=== PATIENT | male | born 1955 | race Caucasian/White ===

== ENCOUNTER 2020-02-17 17:01 | Emergency (ER) | payer OTHER ==
[~2020-02-17] VITALS: Ht 175.3 cm; Wt 131.9 kg
[2020-02-17] MEDS ORDERED: ACETAMINOPHEN 500 MG TABLET ONE (17:25)
[2020-02-17] MEDS ORDERED: ACETAMINOPHEN 500 MG TABLET PO ONE (17:30)
[2020-02-17] MEDS ORDERED: SODIUM CHLORIDE FLUSH 10ML SYR IVF ONE (17:30)
[2020-02-17] MEDS ORDERED: SODIUM CHLORIDE 0.9% 1,000ML IVBOLUS ONE (17:30)
[2020-02-17 17:50] LABS: BASOPHILS % (AUTO) 1 % (0-1); EOSINOPHILS % (AUTO) 0 % (1-7); LYMPHOCYTES % (AUTO) 14 % (22-44); MEAN CORPUSCULAR HEMOGLOBIN 31.4 pg (27.5-34.5); MEAN CORPUSCULAR HGB CONC 34.5 g/dL (33.2-36.2); MEAN PLATELET VOLUME 8.9 fL (7.4-10.4); MONOCYTES % (AUTO) 8 % (2-9); NEUTROPHILS % (AUTO) 78 % (42-75); PLATELET COUNT 136 x10^3/uL (130-400); RED BLOOD COUNT 5.07 x10^6/uL (4.38-5.82); RED CELL DISTRIBUTION WIDTH 14.1 % (9.4-14.8)
[2020-02-17 17:58] LABS: ANION GAP 8 mmol/L (5-15); CALCIUM 8.7 mg/dL (8.5-10.1); CHLORIDE 99 mmol/L (98-107)
[2020-02-17 18:01] LABS: ALANINE AMINOTRANSFERASE 58 U/L (12-78); ALKALINE PHOSPHATASE 86 U/L (45-117); BILIRUBIN,TOTAL 0.8 mg/dL (0.2-1.0); TOTAL PROTEIN 8.1 g/dL (6.4-8.2)
[2020-02-17 18:05] LABS: MD NO
--- NOTE | 2020-02-17 18:54 | NUR ---
REPORT FROM HUMBERTO FERRARI. FIRST CONTACT, PT SAYS HE FEELS GOOD. ROAD TEST DOWN HALLWAY TO BATHROOM, WAS ABLE TO SPEAK FULL SENTENCES. RR 22 UPON RETURN O2 SAT 92% HR 113. PT SAYS HE FEELS A LOT BETTER.
[2020-02-17 19:38] VITALS: BP 145/88
== END 2020-02-17 19:58 | disposition home or self-care (01) ==
LOC: ED 19:06
DX: U07.1 COVID-19 (principal); R50.9 Fever, unspecified; R05 Cough; R10.9 Unspecified abdominal pain
CPT/HCPCS: 71045; 80053; 85025; 87635; 93005; 96360; 99285; J7030

== ENCOUNTER 2020-02-21 17:20 | Inpatient (IN) | payer OTHER ==
[~2020-02-21] VITALS: Ht 175.3 cm; Wt 125.1 kg
[2020-02-21 19:01] LABS: BASOPHILS % (AUTO) 0 % (0-1); EOSINOPHILS % (AUTO) 0 % (1-7); LYMPHOCYTES % (AUTO) 15 % (22-44); MEAN CORPUSCULAR HEMOGLOBIN 31.6 pg (27.5-34.5); MEAN PLATELET VOLUME 9.2 fL (7.4-10.4); MONOCYTES % (AUTO) 5 % (2-9); NEUTROPHILS % (AUTO) 80 % (42-75); PLATELET COUNT 148 x10^3/uL (130-400); RED BLOOD COUNT 4.79 x10^6/uL (4.38-5.82); RED CELL DISTRIBUTION WIDTH 14.3 % (9.4-14.8)
[2020-02-21 19:05] LABS: MD NO
[2020-02-21 19:15] LABS: ALANINE AMINOTRANSFERASE 40 U/L (12-78); ALBUMIN 3.3 g/dL (3.4-5.0); ANION GAP 8 mmol/L (5-15); CALCIUM 8.1 mg/dL (8.5-10.1); CHLORIDE 97 mmol/L (98-107); CREATININE 1.56 mg/dL (0.7-1.3)
[2020-02-21 19:17] LABS: ALKALINE PHOSPHATASE 61 U/L (45-117); BILIRUBIN,TOTAL 0.7 mg/dL (0.2-1.0); TOTAL PROTEIN 7.4 g/dL (6.4-8.2)
[2020-02-21] MEDS ORDERED: DEXAMETHASONE 4 MG TABLET PO ONE (22:00)
[2020-02-21] MEDS ORDERED: DEXAMETHASONE 4 MG TABLET ONE (22:16)
--- NOTE | 2020-02-21 22:25 | NUR ---
PT RESTING IN BED, WITH NC ON WITH O2 AT 3L. PT A/O X4 AND ON MONITOR. PT VSS. PT DENIED ANY WANTS OR NEEDS AT THIS TIME
[2020-02-22 00:56] VITALS: BP 135/77
[2020-02-22] MEDS ORDERED: ISOS60TA36 PO (01:39)
[2020-02-22] MEDS ORDERED: ATOR40TA78 PO (01:39)
[2020-02-22] MEDS ORDERED: AMLO1CAP3 PO (01:39)
[2020-02-22] MEDS ORDERED: PHARMACY MAY ADJ FOR RENAL FX MC PRN (03:00)
[2020-02-22] MEDS ORDERED: hydrALAzine 20 MG/ML, 1ML IVPush PRN (03:00)
[2020-02-22] MEDS ORDERED: DOCUSATE 100 MG CAPSULE PO PRN (03:00)
[2020-02-22] MEDS ORDERED: morphine SULFATE 10 MG/ML, 1ML IVPush PRN (03:00)
[2020-02-22] MEDS ORDERED: PROMETHAZINE 25 MG/ML, 1ML IM PRN (03:00)
[2020-02-22] MEDS ORDERED: ONDANSETRON 2MG/ML, 2ML IVPush PRN (03:00)
[2020-02-22] MEDS ORDERED: OXYcodone IR 5MG TABLET PO PRN (03:00)
[2020-02-22] MEDS ORDERED: BISACODYL 10 MG SUPP PR PRN (03:00)
[2020-02-22] MEDS ORDERED: ONDANSETRON ODT 4 MG PO PRN (03:00)
[2020-02-22] MEDS ORDERED: ENOXAPARIN 40 MG/0.4 ML SQ SCH (03:00)
[2020-02-22] MEDS ORDERED: POLYETHYLENE GLYCOL 17 GM PACKET PO PRN (03:00)
[2020-02-22] MEDS: SODIUM CHLORIDE 0.9% 1,000 ML IV SCH ×2 (05:12→23:12)
[2020-02-22] MEDS: DOXYCYCLINE 100 MG in DEXTROSE 5% 250 ML IV SCH ×2 (05:12→16:40)
[2020-02-22] MEDS: ASCORBIC ACID 500 MG TABLET PO SCH ×4 (05:12→20:27)
[2020-02-22] MEDS: ENOXAPARIN 40 MG/0.4 ML SQ SCH ×2 (05:13→16:40)
[2020-02-22 05:30] LABS: BASOPHILS % (AUTO) 0 % (0-1); EOSINOPHILS % (AUTO) 0 % (1-7); LYMPHOCYTES % (AUTO) 11 % (22-44); MEAN CORPUSCULAR HEMOGLOBIN 31.5 pg (27.5-34.5); MEAN CORPUSCULAR HGB CONC 34.7 g/dL (33.2-36.2); MEAN PLATELET VOLUME 9.3 fL (7.4-10.4); MONOCYTES % (AUTO) 4 % (2-9); NEUTROPHILS % (AUTO) 85 % (42-75); PLATELET COUNT 153 x10^3/uL (130-400); RED BLOOD COUNT 4.83 x10^6/uL (4.38-5.82); RED CELL DISTRIBUTION WIDTH 14.3 % (9.4-14.8)
[2020-02-22 05:31] LABS: MD NO
[2020-02-22 05:41] LABS: CHLORIDE 96 mmol/L (98-107)
[2020-02-22 05:43] LABS: D-DIMER 1.36 ug/mlFEU (0.00-0.52); INTERNATIONAL NORMALIZED RATIO 1.01 (0.93-1.1); PROTHROMBIN TIME 10.7 Seconds (9.6-11.5)
[2020-02-22 05:55] LABS: ALANINE AMINOTRANSFERASE 43 U/L (12-78); ALBUMIN 3.4 g/dL (3.4-5.0); ALKALINE PHOSPHATASE 65 U/L (45-117); ANION GAP 7 mmol/L (5-15); BILIRUBIN,TOTAL 0.8 mg/dL (0.2-1.0); CALCIUM 8.3 mg/dL (8.5-10.1); CHOL/HDL RATIO 4.5; CHOLESTEROL, TOTAL 126 mg/dL (140-239); CREATININE 1.63 mg/dL (0.7-1.3); HDL CHOL % 22 % (26-37); HDL CHOLESTEROL (DIRECT) 28 mg/dL (40-60); LDL CHOLESTEROL,CALCULATED 51 mg/dL (54-169); LDL/HDL RATIO 1.8 (0.5-3.0); TOTAL PROTEIN 8.1 g/dL (6.4-8.2); TRIGLYCERIDES 234 mg/dL (50-200); VLDL CHOLESTEROL 47 mg/dL (0-25)
[2020-02-22] MEDS: AMLODIPINE 5 MG TABLET PO SCH (07:53)
[2020-02-22] MEDS: DEXAMETHASONE 4 MG/ML, 1ML IVPush SCH (07:53)
[2020-02-22] MEDS: ISOSORBIDE MONONITRATE ER 60 MG TABLET PO SCH (07:54)
[2020-02-22] MEDS: ZINC SULFATE 220 MG CAPSULE PO SCH (07:54)
[2020-02-22] MEDS: CEFTRIAXONE PMX 2GM/50ML 50 ML IVPB SCH (07:55)
[2020-02-22 07:56] VITALS: BP 157/106
[2020-02-22] MEDS ORDERED: PROMETHAZINE/COD. 10MG/6.25MG/5 ML ORAL SOL PO PRN (08:30)
[2020-02-22] MEDS ORDERED: CHOLECALCIFEROL 5,000u TAB ONE (08:57)
[2020-02-22] MEDS ORDERED: CHOLECALCIFEROL (VITAMIN D3) 5000 IU CAP PO SCH (09:00)
[2020-02-22] MEDS: GUAIFENESIN/DM 200-20MG, 10ML UDC PO SCH ×4 (09:13→20:28)
[2020-02-22] MEDS: BENZONATATE 100 MG CAPSULE PO SCH ×2 (09:13→16:39)
[2020-02-22 12:00] VITALS: BP 125/84
[2020-02-22] MEDS ORDERED: DIPHENOXYLATE/ATROPINE TABLET PO PRN (13:00)
[2020-02-22] MEDS ORDERED: OMNIPAQUE 350 MG/ML, 100ML BOTTLE ONE (13:55)
[2020-02-22] MEDS ORDERED: REMDESIVIR 200 MG in SODIUM CHLORIDE 0.9% 250 ML IVPB ONE (17:00)
[2020-02-22 18:20] VITALS: BP 139/87
[2020-02-22] MEDS: ATORVASTATIN 40 MG TABLET PO SCH (20:28)
[2020-02-23] MEDS: BENZONATATE 100 MG CAPSULE PO SCH ×4 (00:47→20:58)
[2020-02-23] MEDS: GUAIFENESIN/DM 200-20MG, 10ML UDC PO SCH ×7 (00:47→23:58)
[2020-02-23 00:58] VITALS: BP 138/64
[2020-02-23] MEDS: ENOXAPARIN 40 MG/0.4 ML SQ SCH ×2 (05:07→17:00)
[2020-02-23] MEDS: DOXYCYCLINE 100 MG in DEXTROSE 5% 250 ML IV SCH ×2 (05:07→23:59)
[2020-02-23 05:58] LABS: ALANINE AMINOTRANSFERASE 37 U/L (12-78); ANION GAP 6 mmol/L (5-15); CALCIUM 8.1 mg/dL (8.5-10.1); CHLORIDE 102 mmol/L (98-107); CREATININE 1.41 mg/dL (0.7-1.3)
[2020-02-23 06:01] LABS: ALKALINE PHOSPHATASE 56 U/L (45-117); BILIRUBIN,TOTAL 0.6 mg/dL (0.2-1.0)
[2020-02-23 08:27] VITALS: BP 124/86
[2020-02-23] MEDS ORDERED: DEXAMETHASONE 4 MG/ML, 5ML ONE (08:53)
[2020-02-23] MEDS: ZINC SULFATE 220 MG CAPSULE PO SCH (09:01)
[2020-02-23] MEDS: CHOLECALCIFEROL 5,000u TAB PO SCH (09:02)
[2020-02-23] MEDS: ISOSORBIDE MONONITRATE ER 60 MG TABLET PO SCH (09:02)
[2020-02-23] MEDS: AMLODIPINE 5 MG TABLET PO SCH (09:02)
[2020-02-23] MEDS: ASCORBIC ACID 500 MG TABLET PO SCH ×4 (09:02→20:58)
[2020-02-23] MEDS: CEFTRIAXONE PMX 2GM/50ML 50 ML IVPB SCH (09:04)
[2020-02-23] MEDS: DEXAMETHASONE 4 MG/ML, 1ML IVPush SCH (09:06)
[2020-02-23] MEDS ORDERED: FUROSEMIDE 40 MG/4 ML IV ONE (12:30)
[2020-02-23 12:32] VITALS: BP 141/88
[2020-02-23] MEDS: INSULIN LISPRO 100 UNITS/ML, PEN SQ-INSULIN SCH ×3 (13:00→21:30)
[2020-02-23 13:57] LABS: TROPONIN I < 0.015 ng/mL (0.000-0.045)
[2020-02-23] MEDS: REMDESIVIR 100 MG in SODIUM CHLORIDE 0.9% 250 ML IVPB SCH (18:10)
[2020-02-23] MEDS: ATORVASTATIN 40 MG TABLET PO SCH (20:59)
[2020-02-24 04:36] VITALS: BP 136/82
[2020-02-24] MEDS: ENOXAPARIN 40 MG/0.4 ML SQ SCH ×2 (04:36→17:26)
[2020-02-24] MEDS: GUAIFENESIN/DM 200-20MG, 10ML UDC PO SCH ×5 (04:36→20:01)
[2020-02-24 04:59] LABS: BASOPHILS % (AUTO) 0 % (0-1); EOSINOPHILS % (AUTO) 0 % (1-7); LYMPHOCYTES % (AUTO) 8 % (22-44); MEAN CORPUSCULAR HEMOGLOBIN 30.9 pg (27.5-34.5); MEAN CORPUSCULAR HGB CONC 34.5 g/dL (33.2-36.2); MONOCYTES % (AUTO) 7 % (2-9); NEUTROPHILS % (AUTO) 86 % (42-75); PLATELET COUNT 185 x10^3/uL (130-400); RED BLOOD COUNT 4.57 x10^6/uL (4.38-5.82); RED CELL DISTRIBUTION WIDTH 14.3 % (9.4-14.8)
[2020-02-24 05:08] LABS: MD NO
[2020-02-24 05:09] LABS: ANION GAP 8 mmol/L (5-15); CALCIUM 8.3 mg/dL (8.5-10.1); CHLORIDE 104 mmol/L (98-107)
[2020-02-24 05:13] LABS: ALANINE AMINOTRANSFERASE 38 U/L (12-78); ALKALINE PHOSPHATASE 58 U/L (45-117); BILIRUBIN,TOTAL 0.8 mg/dL (0.2-1.0); CREATININE 1.29 mg/dL (0.7-1.3); TOTAL PROTEIN 7.1 g/dL (6.4-8.2)
[2020-02-24] MEDS: INSULIN LISPRO 100 UNITS/ML, PEN SQ-INSULIN SCH ×4 (08:55→20:10)
[2020-02-24] MEDS: FUROSEMIDE 40 MG/4 ML IV SCH ×2 (08:55→17:27)
[2020-02-24] MEDS: CEFTRIAXONE PMX 2GM/50ML 50 ML IVPB SCH (08:56)
[2020-02-24] MEDS: ASCORBIC ACID 500 MG TABLET PO SCH ×3 (08:59→20:01)
[2020-02-24] MEDS: DOXYCYCLINE 100MG TABLET PO SCH ×2 (08:59→20:01)
[2020-02-24] MEDS: BENZONATATE 100 MG CAPSULE PO SCH ×3 (08:59→20:01)
[2020-02-24] MEDS: ZINC SULFATE 220 MG CAPSULE PO SCH (08:59)
[2020-02-24] MEDS: ISOSORBIDE MONONITRATE ER 60 MG TABLET PO SCH (09:00)
[2020-02-24] MEDS: CHOLECALCIFEROL 5,000u TAB PO SCH (09:00)
[2020-02-24] MEDS: DEXAMETHASONE 4 MG/ML, 1ML IVPush SCH (09:00)
[2020-02-24] MEDS: AMLODIPINE 5 MG TABLET PO SCH (09:00)
[2020-02-24 11:24] LABS: D-DIMER 0.67 ug/mlFEU (0.00-0.52); INTERNATIONAL NORMALIZED RATIO 0.98 (0.93-1.1); PROTHROMBIN TIME 10.4 Seconds (9.6-11.5)
[2020-02-24] MEDS: REMDESIVIR 100 MG in SODIUM CHLORIDE 0.9% 250 ML IVPB SCH (17:31)
[2020-02-24] MEDS: ATORVASTATIN 40 MG TABLET PO SCH (20:01)
[2020-02-25] MEDS: GUAIFENESIN/DM 200-20MG, 10ML UDC PO SCH ×6 (00:37→20:22)
[2020-02-25 04:14] VITALS: BP 136/85
[2020-02-25] MEDS: ENOXAPARIN 40 MG/0.4 ML SQ SCH ×2 (04:38→16:49)
[2020-02-25 04:52] LABS: MEAN CORPUSCULAR HEMOGLOBIN 31.1 pg (27.5-34.5); MEAN CORPUSCULAR HGB CONC 34.1 g/dL (33.2-36.2); MEAN PLATELET VOLUME 8.9 fL (7.4-10.4); PLATELET COUNT 224 x10^3/uL (130-400); RED BLOOD COUNT 4.58 x10^6/uL (4.38-5.82); RED CELL DISTRIBUTION WIDTH 14.3 % (9.4-14.8)
[2020-02-25 04:58] LABS: ALBUMIN 2.9 g/dL (3.4-5.0); ANION GAP 7 mmol/L (5-15); CALCIUM 8.6 mg/dL (8.5-10.1); CHLORIDE 103 mmol/L (98-107)
[2020-02-25 05:01] LABS: ALANINE AMINOTRANSFERASE 41 U/L (12-78); ALKALINE PHOSPHATASE 63 U/L (45-117); TOTAL PROTEIN 7.1 g/dL (6.4-8.2)
[2020-02-25 06:04] LABS: MD YES
[2020-02-25 06:06] LABS: BANDS%(MANUAL) 3 % (0-7); LYMPH#(MANUAL) 0.89 x10^3/uL (1-3.4); LYMPHS% (MANUAL) 9 % (22-44); MYELOCYTES% (MANUAL) 1 % (0-0)
[2020-02-25 06:07] LABS: <PLATELET ESTIMATE> ADEQUATE; <PLT MORPHOLOGY> NORMAL PLT MORPH; <RBC MORPHOLOGY> NORMAL; MONOS% (MANUAL) 4 % (2-9)
[2020-02-25 06:08] LABS: METAMYELOCYTES% (MANUAL) 3 % (0-1); SEG#(MANUAL) 7.92 x10^3/uL (1.8-6.8); SEGS% (MANUAL) 80 % (42-75)
[2020-02-25] MEDS: CEFTRIAXONE PMX 2GM/50ML 50 ML IVPB SCH (07:44)
[2020-02-25] MEDS: FUROSEMIDE 40 MG/4 ML IV SCH ×2 (07:46→16:43)
[2020-02-25] MEDS: INSULIN LISPRO 100 UNITS/ML, PEN SQ-INSULIN SCH ×4 (08:33→20:41)
[2020-02-25] MEDS: DEXAMETHASONE 4 MG/ML, 1ML IVPush SCH (08:35)
[2020-02-25] MEDS: ASCORBIC ACID 500 MG TABLET PO SCH ×3 (08:38→20:23)
[2020-02-25] MEDS: AMLODIPINE 5 MG TABLET PO SCH (08:40)
[2020-02-25] MEDS: ISOSORBIDE MONONITRATE ER 60 MG TABLET PO SCH (08:40)
[2020-02-25] MEDS: BENZONATATE 100 MG CAPSULE PO SCH ×3 (08:40→20:23)
[2020-02-25] MEDS: ZINC SULFATE 220 MG CAPSULE PO SCH (08:40)
[2020-02-25] MEDS: DOXYCYCLINE 100MG TABLET PO SCH ×2 (08:41→20:23)
[2020-02-25] MEDS: CHOLECALCIFEROL 5,000u TAB PO SCH (08:42)
[2020-02-25] MEDS: REMDESIVIR 100 MG in SODIUM CHLORIDE 0.9% 250 ML IVPB SCH (16:43)
[2020-02-25] MEDS: ATORVASTATIN 40 MG TABLET PO SCH (20:22)
[2020-02-26] MEDS: GUAIFENESIN/DM 200-20MG, 10ML UDC PO SCH ×6 (00:30→20:13)
[2020-02-26 04:00] VITALS: BP 116/83
[2020-02-26] MEDS: ENOXAPARIN 40 MG/0.4 ML SQ SCH ×2 (04:25→16:47)
[2020-02-26 04:49] LABS: MEAN CORPUSCULAR HEMOGLOBIN 30.9 pg (27.5-34.5); MEAN CORPUSCULAR HGB CONC 33.9 g/dL (33.2-36.2); MEAN PLATELET VOLUME 8.6 fL (7.4-10.4); PLATELET COUNT 297 x10^3/uL (130-400); RED BLOOD COUNT 4.95 x10^6/uL (4.38-5.82); RED CELL DISTRIBUTION WIDTH 14.1 % (9.4-14.8)
[2020-02-26 05:01] LABS: ALANINE AMINOTRANSFERASE 43 U/L (12-78); ALBUMIN 3.1 g/dL (3.4-5.0); ANION GAP 9 mmol/L (5-15); CALCIUM 8.9 mg/dL (8.5-10.1); CHLORIDE 103 mmol/L (98-107); CREATININE 1.42 mg/dL (0.7-1.3)
[2020-02-26 05:04] LABS: ALKALINE PHOSPHATASE 73 U/L (45-117); BILIRUBIN,TOTAL 0.9 mg/dL (0.2-1.0); TOTAL PROTEIN 7.5 g/dL (6.4-8.2)
[2020-02-26 05:08] LABS: D-DIMER 1.06 ug/mlFEU (0.00-0.52); INTERNATIONAL NORMALIZED RATIO 1.01 (0.93-1.1); PROTHROMBIN TIME 10.7 Seconds (9.6-11.5)
[2020-02-26 06:04] LABS: MD YES
[2020-02-26 06:06] LABS: <PLATELET ESTIMATE> ADEQUATE; <PLT MORPHOLOGY> NORMAL PLT MORPH; <RBC MORPHOLOGY> NORMAL; BAND#(MANUAL) 0.14 x10^3/uL; BANDS%(MANUAL) 1 % (0-7); LYMPH#(MANUAL) 0.68 x10^3/uL (1-3.4); LYMPHS% (MANUAL) 5 % (22-44); METAMYELOCYTES# (MANUAL) 0.54 x10^3/uL (0-0); METAMYELOCYTES% (MANUAL) 4 % (0-1); MONOS#(MANUAL) 0.82 x10^3/uL (0.3-2.7); MONOS% (MANUAL) 6 % (2-9); SEG#(MANUAL) 11.42 x10^3/uL (1.8-6.8); SEGS% (MANUAL) 84 % (42-75)
[2020-02-26] MEDS: FUROSEMIDE 40 MG/4 ML IV SCH (07:35)
[2020-02-26] MEDS: CEFTRIAXONE PMX 2GM/50ML 50 ML IVPB SCH (07:35)
[2020-02-26] MEDS: INSULIN LISPRO 100 UNITS/ML, PEN SQ-INSULIN SCH ×4 (07:37→20:14)
[2020-02-26] MEDS: DEXAMETHASONE 4 MG/ML, 1ML IVPush SCH (08:32)
[2020-02-26] MEDS: CHOLECALCIFEROL 5,000u TAB PO SCH (08:38)
[2020-02-26] MEDS: BENZONATATE 100 MG CAPSULE PO SCH ×3 (08:38→20:13)
[2020-02-26] MEDS: ZINC SULFATE 220 MG CAPSULE PO SCH (08:38)
[2020-02-26] MEDS: DOXYCYCLINE 100MG TABLET PO SCH ×2 (08:39→20:13)
[2020-02-26] MEDS: ISOSORBIDE MONONITRATE ER 60 MG TABLET PO SCH (08:39)
[2020-02-26] MEDS: ASCORBIC ACID 500 MG TABLET PO SCH ×3 (08:39→20:12)
[2020-02-26] MEDS: AMLODIPINE 5 MG TABLET PO SCH (08:39)
[2020-02-26] MEDS: REMDESIVIR 100 MG in SODIUM CHLORIDE 0.9% 250 ML IVPB SCH (16:51)
[2020-02-26] MEDS: ATORVASTATIN 40 MG TABLET PO SCH (20:13)
[2020-02-27] MEDS: GUAIFENESIN/DM 200-20MG, 10ML UDC PO SCH ×6 (00:28→20:47)
[2020-02-27 04:33] VITALS: BP 120/76
[2020-02-27] MEDS: ENOXAPARIN 40 MG/0.4 ML SQ SCH ×2 (04:41→16:54)
[2020-02-27 06:16] LABS: MEAN CORPUSCULAR HEMOGLOBIN 30.9 pg (27.5-34.5); MEAN CORPUSCULAR HGB CONC 34.1 g/dL (33.2-36.2); MEAN PLATELET VOLUME 8.7 fL (7.4-10.4); PLATELET COUNT 298 x10^3/uL (130-400); RED BLOOD COUNT 4.82 x10^6/uL (4.38-5.82); RED CELL DISTRIBUTION WIDTH 14.2 % (9.4-14.8)
[2020-02-27 06:20] LABS: ANION GAP 8 mmol/L (5-15); CALCIUM 8.6 mg/dL (8.5-10.1); CHLORIDE 102 mmol/L (98-107); CREATININE 1.28 mg/dL (0.7-1.3)
[2020-02-27 06:21] LABS: BILIRUBIN,TOTAL 1.1 mg/dL (0.2-1.0)
[2020-02-27 06:25] LABS: FIO2 80 %
[2020-02-27 07:17] LABS: MD YES
[2020-02-27 07:18] LABS: <PLATELET ESTIMATE> ADEQUATE; <PLT MORPHOLOGY> NORMAL PLT MORPH; <RBC MORPHOLOGY> NORMAL; BAND#(MANUAL) 0.28 x10^3/uL; BANDS%(MANUAL) 2 % (0-7); LYMPHS% (MANUAL) 8 % (22-44); METAMYELOCYTES# (MANUAL) 0.14 x10^3/uL (0-0); METAMYELOCYTES% (MANUAL) 1 % (0-1); MONOS#(MANUAL) 0.69 x10^3/uL (0.3-2.7); MONOS% (MANUAL) 5 % (2-9); SEG#(MANUAL) 11.59 x10^3/uL (1.8-6.8); SEGS% (MANUAL) 84 % (42-75)
[2020-02-27] MEDS: CEFTRIAXONE PMX 2GM/50ML 50 ML IVPB SCH (07:39)
[2020-02-27] MEDS: INSULIN LISPRO 100 UNITS/ML, PEN SQ-INSULIN SCH ×4 (07:39→20:47)
[2020-02-27] MEDS: ZINC SULFATE 220 MG CAPSULE PO SCH (07:40)
[2020-02-27] MEDS: CHOLECALCIFEROL 5,000u TAB PO SCH (07:40)
[2020-02-27] MEDS: DEXAMETHASONE 4 MG/ML, 1ML IVPush SCH (07:40)
[2020-02-27] MEDS: AMLODIPINE 5 MG TABLET PO SCH (07:40)
[2020-02-27] MEDS: DOXYCYCLINE 100MG TABLET PO SCH ×2 (07:40→20:47)
[2020-02-27] MEDS: ISOSORBIDE MONONITRATE ER 60 MG TABLET PO SCH (07:40)
[2020-02-27] MEDS: BENZONATATE 100 MG CAPSULE PO SCH ×3 (07:40→20:48)
[2020-02-27] MEDS: ASCORBIC ACID 500 MG TABLET PO SCH ×3 (07:41→20:47)
[2020-02-27] MEDS ORDERED: PHARMACY MAY ADJ FOR RENAL FX MC SCH (10:30)
[2020-02-27] MEDS ORDERED: LIDOCAINE-MPF 1%, 2ML ENDO PRN (10:30)
[2020-02-27] MEDS ORDERED: NOREPINEPHRINE 8 MG in SODIUM CHLORIDE 0.9% 242 ML IV PRN (10:30)
[2020-02-27] MEDS: PROPOFOL 100 ML IV PRN ×4 (10:47→21:31)
[2020-02-27] MEDS: FENTANYL PF 1,000 MCG in SODIUM CHLORIDE 0.9% 80 ML IV PRN ×2 (10:47→19:59)
[2020-02-27] MEDS ORDERED: ALBUTEROL/IPRATROPIUM 2.5MG/0.5MG, 3 ML INLINE PRN (11:00)
[2020-02-27] MEDS ORDERED: MIDAZOLAM 1 MG/ML, 5ML IVPush ONE (11:00)
[2020-02-27] MEDS ORDERED: ETOMIDATE 20 MG/10 ML IVPush ONE (11:00)
[2020-02-27] MEDS: FAMOTIDINE 20 MG/2 ML IVPush SCH ×2 (11:34→20:47)
[2020-02-27] MEDS: ALBUTEROL/IPRATROPIUM 2.5MG/0.5MG, 3 ML INLINE SCH ×2 (13:26→19:04)
[2020-02-27] MEDS ORDERED: MIDAZOLAM 1 MG/ML, 5ML ONE (14:00)
[2020-02-27] MEDS ORDERED: PROPOFOL 10 MG/ML, 100ML IV ONE (14:00)
[2020-02-27] MEDS ORDERED: ETOMIDATE 20 MG/10 ML ONE (14:00)
[2020-02-27] MEDS: ATORVASTATIN 40 MG TABLET PO SCH (20:47)
[2020-02-28] MEDS: ALBUTEROL/IPRATROPIUM 2.5MG/0.5MG, 3 ML INLINE SCH ×4 (00:17→18:35)
[2020-02-28] MEDS: GUAIFENESIN/DM 200-20MG, 10ML UDC PO SCH ×6 (01:00→19:46)
[2020-02-28] MEDS: PROPOFOL 100 ML IV PRN ×7 (01:29→23:40)
[2020-02-28] MEDS ORDERED: MIDAZOLAM 1 MG/ML, 5ML ONE (01:42)
[2020-02-28] MEDS ORDERED: ETOMIDATE 20 MG/10 ML ONE (01:42)
[2020-02-28 03:54] LABS: ANION GAP 7 mmol/L (5-15); CALCIUM 8.2 mg/dL (8.5-10.1); CHLORIDE 100 mmol/L (98-107); CREATININE 1.42 mg/dL (0.7-1.3)
[2020-02-28 03:55] LABS: BILIRUBIN,TOTAL 1.2 mg/dL (0.2-1.0)
[2020-02-28 03:58] LABS: MEAN CORPUSCULAR HGB CONC 34.3 g/dL (33.2-36.2); MEAN PLATELET VOLUME 8.8 fL (7.4-10.4); PLATELET COUNT 293 x10^3/uL (130-400); RED BLOOD COUNT 4.69 x10^6/uL (4.38-5.82); RED CELL DISTRIBUTION WIDTH 13.9 % (9.4-14.8)
[2020-02-28 03:59] LABS: INTERNATIONAL NORMALIZED RATIO 1.03 (0.93-1.1); PROTHROMBIN TIME 10.9 Seconds (9.6-11.5)
[2020-02-28] MEDS: ENOXAPARIN 40 MG/0.4 ML SQ SCH ×2 (04:02→15:49)
[2020-02-28] MEDS: INSULIN LISPRO 100 UNITS/ML, PEN SQ-INSULIN SCH ×4 (04:02→21:20)
[2020-02-28] MEDS: FENTANYL PF 1,000 MCG in SODIUM CHLORIDE 0.9% 80 ML IV PRN ×2 (04:05→11:44)
[2020-02-28 04:06] LABS: D-DIMER 5.08 ug/mlFEU (0.00-0.52)
[2020-02-28 04:35] LABS: MD YES
[2020-02-28 04:38] LABS: BAND#(MANUAL) 0.18 x10^3/uL; BANDS%(MANUAL) 1 % (0-7); LYMPH#(MANUAL) 0.55 x10^3/uL (1-3.4); LYMPHS% (MANUAL) 3 % (22-44); METAMYELOCYTES# (MANUAL) 0.18 x10^3/uL (0-0); METAMYELOCYTES% (MANUAL) 1 % (0-1); MONOS#(MANUAL) 0.73 x10^3/uL (0.3-2.7); MONOS% (MANUAL) 4 % (2-9); MYELOCYTES# (MANUAL) 0.55 x10^3/uL (0-0); MYELOCYTES% (MANUAL) 3 % (0-0); SEG#(MANUAL) 16.02 x10^3/uL (1.8-6.8); SEGS% (MANUAL) 88 % (42-75)
[2020-02-28 04:39] LABS: <RBC MORPHOLOGY> NORMAL
[2020-02-28 04:40] LABS: <PLATELET ESTIMATE> ADEQUATE; <PLT MORPHOLOGY> NORMAL PLT MORPH; SMUDGE CELLS 1+
[2020-02-28] MEDS: INSULIN GLARGINE 100 UNITS/ML, PEN SQ-INSULIN SCH ×2 (07:29→20:05)
[2020-02-28] MEDS: AMLODIPINE 5 MG TABLET PO SCH ×2 (09:00→09:26)
[2020-02-28] MEDS: ISOSORBIDE MONONITRATE ER 60 MG TABLET PO SCH ×2 (09:00→09:26)
[2020-02-28] MEDS: DOXYCYCLINE 100MG TABLET PO SCH ×2 (09:26→19:45)
[2020-02-28] MEDS: ZINC SULFATE 220 MG CAPSULE PO SCH (09:26)
[2020-02-28] MEDS: CHOLECALCIFEROL 5,000u TAB PO SCH (09:26)
[2020-02-28] MEDS: BENZONATATE 100 MG CAPSULE PO SCH ×3 (09:26→20:58)
[2020-02-28] MEDS: FAMOTIDINE 20 MG/2 ML IVPush SCH ×2 (09:26→19:45)
[2020-02-28] MEDS: ASCORBIC ACID 500 MG TABLET PO SCH ×3 (09:26→19:46)
[2020-02-28] MEDS: CEFTRIAXONE PMX 2GM/50ML 50 ML IVPB SCH (09:51)
--- NOTE | 2020-02-28 10:44 | NUR ---
Vital HP: goal: 60 ml/hr. Addendum: 02/28/20 at [address] Amended: Links added.
--- NOTE | 2020-02-28 10:46 | NUR ---
TF goal:Vital HP: on propofol:45 ml/hr, off propofol: 60 ml/hr Addendum: 02/28/20 at [address] Amended: Links added.
[2020-02-28] MEDS: ATORVASTATIN 40 MG TABLET PO SCH (19:45)
[2020-02-29] MEDS: ALBUTEROL/IPRATROPIUM 2.5MG/0.5MG, 3 ML INLINE SCH ×4 (00:30→18:40)
[2020-02-29] MEDS: GUAIFENESIN/DM 200-20MG, 10ML UDC PO SCH ×6 (00:51→20:16)
[2020-02-29] MEDS: PROPOFOL 100 ML IV PRN ×5 (02:49→22:15)
[2020-02-29] MEDS: FENTANYL PF 2,500 MCG in SODIUM CHLORIDE 0.9% 200 ML IV PRN ×2 (02:50→20:26)
[2020-02-29] MEDS: INSULIN LISPRO 100 UNITS/ML, PEN SQ-INSULIN SCH ×4 (02:54→20:34)
[2020-02-29] MEDS: ENOXAPARIN 40 MG/0.4 ML SQ SCH ×2 (04:49→17:46)
[2020-02-29 05:16] LABS: MEAN CORPUSCULAR HEMOGLOBIN 30.8 pg (27.5-34.5); MEAN CORPUSCULAR HGB CONC 33.9 g/dL (33.2-36.2); PLATELET COUNT 225 x10^3/uL (130-400); RED BLOOD COUNT 4.68 x10^6/uL (4.38-5.82); RED CELL DISTRIBUTION WIDTH 14.1 % (9.4-14.8)
[2020-02-29 05:25] LABS: ANION GAP 6 mmol/L (5-15); CALCIUM 8.4 mg/dL (8.5-10.1); CHLORIDE 102 mmol/L (98-107); CREATININE 1.53 mg/dL (0.7-1.3)
[2020-02-29 05:27] LABS: BILIRUBIN,TOTAL 0.8 mg/dL (0.2-1.0)
[2020-02-29 05:40] LABS: MD YES
[2020-02-29 05:42] LABS: <PLATELET ESTIMATE> ADEQUATE; <PLT MORPHOLOGY> NORMAL PLT MORPH; <RBC MORPHOLOGY> NORMAL; LYMPHS% (MANUAL) 4 % (22-44); METAMYELOCYTES# (MANUAL) 0.15 x10^3/uL (0-0); METAMYELOCYTES% (MANUAL) 1 % (0-1); MONOS#(MANUAL) 0.76 x10^3/uL (0.3-2.7); MONOS% (MANUAL) 5 % (2-9); MYELOCYTES% (MANUAL) 2 % (0-0); SEG#(MANUAL) 13.29 x10^3/uL (1.8-6.8); SEGS% (MANUAL) 88 % (42-75)
[2020-02-29] MEDS: ASCORBIC ACID 500 MG TABLET PO SCH ×3 (08:35→20:36)
[2020-02-29] MEDS: BENZONATATE 100 MG CAPSULE PO SCH ×3 (08:35→20:16)
[2020-02-29] MEDS: ZINC SULFATE 220 MG CAPSULE PO SCH (08:35)
[2020-02-29] MEDS: CHOLECALCIFEROL 5,000u TAB PO SCH (08:35)
[2020-02-29] MEDS: FAMOTIDINE 20 MG/2 ML IVPush SCH ×2 (08:35→20:35)
[2020-02-29] MEDS: INSULIN GLARGINE 100 UNITS/ML, PEN SQ-INSULIN SCH ×2 (08:37→20:35)
[2020-02-29] MEDS: THIAMINE 100MG TABLET PO SCH (14:59)
[2020-02-29] MEDS ORDERED: INSULIN GLARGINE 100 UNITS/ML, PEN SQ-INSULIN SCH (19:30)
[2020-02-29] MEDS: ATORVASTATIN 40 MG TABLET PO SCH (20:36)
[2020-03-01] MEDS: ALBUTEROL/IPRATROPIUM 2.5MG/0.5MG, 3 ML INLINE SCH ×4 (00:05→18:35)
[2020-03-01] MEDS: GUAIFENESIN/DM 200-20MG, 10ML UDC PO SCH ×6 (01:00→20:25)
[2020-03-01] MEDS: PROPOFOL 100 ML IV PRN (02:22)
[2020-03-01] MEDS: INSULIN LISPRO 100 UNITS/ML, PEN SQ-INSULIN SCH ×4 (03:33→20:42)
[2020-03-01 03:44] LABS: BASOPHILS % (AUTO) 0 % (0-1); EOSINOPHILS % (AUTO) 2 % (1-7); LYMPHOCYTES % (AUTO) 6 % (22-44); MEAN CORPUSCULAR HGB CONC 34.1 g/dL (33.2-36.2); MONOCYTES % (AUTO) 4 % (2-9); NEUTROPHILS % (AUTO) 88 % (42-75); PLATELET COUNT 195 x10^3/uL (130-400); RED BLOOD COUNT 4.51 x10^6/uL (4.38-5.82); RED CELL DISTRIBUTION WIDTH 14.5 % (9.4-14.8)
[2020-03-01 03:56] LABS: CHLORIDE 101 mmol/L (98-107)
[2020-03-01 04:07] LABS: ANION GAP 6 mmol/L (5-15); BILIRUBIN,TOTAL 0.9 mg/dL (0.2-1.0); CALCIUM 8.4 mg/dL (8.5-10.1); CREATININE 1.58 mg/dL (0.7-1.3); TRIGLYCERIDES 445 mg/dL (50-200)
[2020-03-01 04:12] LABS: D-DIMER 2.05 ug/mlFEU (0.00-0.52); INTERNATIONAL NORMALIZED RATIO 1.01 (0.93-1.1); PROTHROMBIN TIME 10.7 Seconds (9.6-11.5)
[2020-03-01 04:30] LABS: MD SCAN
[2020-03-01] MEDS: ENOXAPARIN 40 MG/0.4 ML SQ SCH ×2 (05:27→17:12)
[2020-03-01] MEDS: CHOLECALCIFEROL 5,000u TAB PO SCH (08:26)
[2020-03-01] MEDS: INSULIN GLARGINE 100 UNITS/ML, PEN SQ-INSULIN SCH ×2 (08:26→20:43)
[2020-03-01] MEDS: THIAMINE 100MG TABLET PO SCH (08:26)
[2020-03-01] MEDS: FAMOTIDINE 20 MG/2 ML IVPush SCH ×2 (08:27→20:24)
[2020-03-01] MEDS: ASCORBIC ACID 500 MG TABLET PO SCH ×3 (08:27→20:23)
[2020-03-01] MEDS: ZINC SULFATE 220 MG CAPSULE PO SCH (08:27)
[2020-03-01] MEDS: BENZONATATE 100 MG CAPSULE PO SCH ×4 (08:27→20:24)
[2020-03-01] MEDS ORDERED: FUROSEMIDE 40 MG/4 ML IV ONE (10:30)
[2020-03-01] MEDS: MIDAZOLAM HCL 50 MG in SODIUM CHLORIDE 0.9% 40 ML IV PRN ×2 (11:00→17:11)
[2020-03-01] MEDS: FENTANYL PF 2,500 MCG in SODIUM CHLORIDE 0.9% 200 ML IV PRN (14:03)
[2020-03-01] MEDS: ACETAMINOPHEN 325 MG TABLET PO PRN (14:07)
[2020-03-01 15:38] LABS: MICROSCOPIC AUTO
[2020-03-01] MEDS: LINEZOLID 600 MG TABLET PO SCH (20:23)
[2020-03-01] MEDS: ATORVASTATIN 40 MG TABLET PO SCH (20:25)
[2020-03-02] MEDS: GUAIFENESIN/DM 200-20MG, 10ML UDC PO SCH ×6 (00:36→20:48)
[2020-03-02] MEDS: ALBUTEROL/IPRATROPIUM 2.5MG/0.5MG, 3 ML INLINE SCH ×4 (01:11→21:00)
[2020-03-02] MEDS: INSULIN LISPRO 100 UNITS/ML, PEN SQ-INSULIN SCH ×4 (03:08→20:03)
[2020-03-02 04:48] LABS: MEAN CORPUSCULAR HEMOGLOBIN 30.3 pg (27.5-34.5); MEAN CORPUSCULAR HGB CONC 33.3 g/dL (33.2-36.2); MEAN PLATELET VOLUME 9.1 fL (7.4-10.4); PLATELET COUNT 193 x10^3/uL (130-400); RED BLOOD COUNT 4.36 x10^6/uL (4.38-5.82); RED CELL DISTRIBUTION WIDTH 14.4 % (9.4-14.8)
[2020-03-02 05:01] LABS: ANION GAP 6 mmol/L (5-15); CALCIUM 8.6 mg/dL (8.5-10.1); CHLORIDE 102 mmol/L (98-107); CREATININE 1.68 mg/dL (0.7-1.3)
[2020-03-02 05:02] LABS: BILIRUBIN,TOTAL 0.7 mg/dL (0.2-1.0)
[2020-03-02] MEDS: ENOXAPARIN 40 MG/0.4 ML SQ SCH ×2 (05:20→17:00)
[2020-03-02 05:39] LABS: MD YES
[2020-03-02 05:40] LABS: BAND#(MANUAL) 0.51 x10^3/uL; BANDS%(MANUAL) 3 % (0-7); EOS#(MANUAL) 0.17 x10^3/uL (0.0-0.4); EOS% (MANUAL) 1 % (1-7); LYMPH#(MANUAL) 0.51 x10^3/uL (1-3.4); LYMPHS% (MANUAL) 3 % (22-44); MONOS#(MANUAL) 0.34 x10^3/uL (0.3-2.7); MONOS% (MANUAL) 2 % (2-9); MYELOCYTES# (MANUAL) 0.17 x10^3/uL (0-0); MYELOCYTES% (MANUAL) 1 % (0-0); SEGS% (MANUAL) 90 % (42-75)
[2020-03-02 05:41] LABS: <PLATELET ESTIMATE> ADEQUATE; <PLT MORPHOLOGY> NORMAL PLT MORPH; <RBC MORPHOLOGY> NORMAL
[2020-03-02] MEDS: INSULIN GLARGINE 100 UNITS/ML, PEN SQ-INSULIN SCH ×2 (08:52→20:03)
[2020-03-02] MEDS: LINEZOLID 600 MG TABLET PO SCH ×2 (08:53→20:48)
[2020-03-02] MEDS: ASCORBIC ACID 500 MG TABLET PO SCH ×3 (08:53→20:48)
[2020-03-02] MEDS: THIAMINE 100MG TABLET PO SCH (08:53)
[2020-03-02] MEDS: ZINC SULFATE 220 MG CAPSULE PO SCH (08:53)
[2020-03-02] MEDS: CHOLECALCIFEROL 5,000u TAB PO SCH (08:53)
[2020-03-02] MEDS: BENZONATATE 100 MG CAPSULE PO SCH ×3 (08:54→20:47)
[2020-03-02] MEDS ORDERED: FUROSEMIDE 40 MG/4 ML IV SCH (09:00)
[2020-03-02] MEDS: FENTANYL PF 2,500 MCG in SODIUM CHLORIDE 0.9% 200 ML IV PRN (09:29)
[2020-03-02] MEDS ORDERED: BISACODYL 10 MG SUPP PR ONE (10:00)
[2020-03-02] MEDS: LORATADINE 10 MG TABLET PO SCH (10:46)
[2020-03-02] MEDS: FLUTICASONE NASAL SPRAY 16GM NAS SCH (10:46)
[2020-03-02] MEDS: ACETAMINOPHEN 325 MG TABLET PO PRN ×2 (15:59→20:47)
[2020-03-02] MEDS: FAMOTIDINE 20 MG/2 ML IVPush SCH (20:48)
[2020-03-02] MEDS: MIDAZOLAM HCL 50 MG in SODIUM CHLORIDE 0.9% 40 ML IV PRN (20:48)
[2020-03-02] MEDS: ATORVASTATIN 40 MG TABLET PO SCH (20:48)
[2020-03-03] MEDS: GUAIFENESIN/DM 200-20MG, 10ML UDC PO SCH ×6 (00:15→22:15)
[2020-03-03] MEDS: INSULIN LISPRO 100 UNITS/ML, PEN SQ-INSULIN SCH ×4 (02:56→20:03)
[2020-03-03 04:31] LABS: MEAN CORPUSCULAR HEMOGLOBIN 30.8 pg (27.5-34.5); MEAN CORPUSCULAR HGB CONC 33.6 g/dL (33.2-36.2); MEAN PLATELET VOLUME 9.8 fL (7.4-10.4); PLATELET COUNT 172 x10^3/uL (130-400); RED BLOOD COUNT 4.39 x10^6/uL (4.38-5.82); RED CELL DISTRIBUTION WIDTH 14.4 % (9.4-14.8)
[2020-03-03 04:48] LABS: ANION GAP 4 mmol/L (5-15); CALCIUM 9.2 mg/dL (8.5-10.1); CHLORIDE 103 mmol/L (98-107)
[2020-03-03] MEDS: ENOXAPARIN 40 MG/0.4 ML SQ SCH ×2 (04:51→16:14)
[2020-03-03 04:52] LABS: BILIRUBIN,TOTAL 0.7 mg/dL (0.2-1.0); CREATININE 1.62 mg/dL (0.7-1.3)
[2020-03-03 05:53] LABS: MD YES
[2020-03-03 05:54] LABS: <PLATELET ESTIMATE> ADEQUATE; <PLT MORPHOLOGY> NORMAL PLT MORPH; <RBC MORPHOLOGY> NORMAL; BAND#(MANUAL) 0.31 x10^3/uL; BANDS%(MANUAL) 2 % (0-7); EOS#(MANUAL) 0.31 x10^3/uL (0.0-0.4); EOS% (MANUAL) 2 % (1-7); LYMPH#(MANUAL) 0.79 x10^3/uL (1-3.4); LYMPHS% (MANUAL) 5 % (22-44); METAMYELOCYTES# (MANUAL) 0.16 x10^3/uL (0-0); METAMYELOCYTES% (MANUAL) 1 % (0-1); MONOS#(MANUAL) 0.47 x10^3/uL (0.3-2.7); MONOS% (MANUAL) 3 % (2-9); SEG#(MANUAL) 13.66 x10^3/uL (1.8-6.8); SEGS% (MANUAL) 87 % (42-75)
[2020-03-03] MEDS: ALBUTEROL/IPRATROPIUM 2.5MG/0.5MG, 3 ML INLINE SCH ×3 (09:00→15:00)
[2020-03-03] MEDS: FLUTICASONE NASAL SPRAY 16GM NAS SCH ×3 (09:00→11:40)
[2020-03-03] MEDS: CHOLECALCIFEROL 5,000u TAB PO SCH (09:29)
[2020-03-03] MEDS: FUROSEMIDE 40 MG/4 ML IV SCH ×2 (09:29→22:15)
[2020-03-03] MEDS: BENZONATATE 100 MG CAPSULE PO SCH ×3 (09:29→22:15)
[2020-03-03] MEDS: LINEZOLID 600 MG TABLET PO SCH ×2 (09:30→22:15)
[2020-03-03] MEDS: THIAMINE 100MG TABLET PO SCH (09:30)
[2020-03-03] MEDS: LORATADINE 10 MG TABLET PO SCH (09:30)
[2020-03-03] MEDS: ZINC SULFATE 220 MG CAPSULE PO SCH (09:30)
[2020-03-03] MEDS: ASCORBIC ACID 500 MG TABLET PO SCH ×3 (09:30→22:15)
[2020-03-03] MEDS: FENTANYL PF 2,500 MCG in SODIUM CHLORIDE 0.9% 200 ML IV PRN (11:32)
[2020-03-03] MEDS: LACTULOSE 20 GM/30 ML UDC PO SCH ×2 (11:33→22:16)
[2020-03-03] MEDS: ACETAMINOPHEN 325 MG TABLET PO PRN (12:26)
[2020-03-03 18:15] LABS: D-DIMER 5.27 ug/mlFEU (0.00-0.52); INTERNATIONAL NORMALIZED RATIO 1.01 (0.93-1.1); PROTHROMBIN TIME 10.7 Seconds (9.6-11.5)
[2020-03-03] MEDS: INSULIN GLARGINE 100 UNITS/ML, PEN SQ-INSULIN SCH (20:02)
[2020-03-03] MEDS: FAMOTIDINE 20 MG/2 ML IVPush SCH (22:14)
[2020-03-03] MEDS: ATORVASTATIN 40 MG TABLET PO SCH (22:15)
[2020-03-04] MEDS: GUAIFENESIN/DM 200-20MG, 10ML UDC PO SCH ×6 (01:16→21:34)
[2020-03-04] MEDS: MIDAZOLAM HCL 50 MG in SODIUM CHLORIDE 0.9% 40 ML IV PRN (02:37)
[2020-03-04] MEDS: INSULIN LISPRO 100 UNITS/ML, PEN SQ-INSULIN SCH ×4 (02:39→19:41)
[2020-03-04 04:32] LABS: ANION GAP 6 mmol/L (5-15); CALCIUM 9.6 mg/dL (8.5-10.1); CHLORIDE 102 mmol/L (98-107)
[2020-03-04 04:36] LABS: BILIRUBIN,TOTAL 0.6 mg/dL (0.2-1.0); CREATININE 1.89 mg/dL (0.7-1.3); TRIGLYCERIDES 194 mg/dL (50-200)
[2020-03-04 04:37] LABS: BASOPHILS % (AUTO) 0 % (0-1); EOSINOPHILS % (AUTO) 1 % (1-7); LYMPHOCYTES % (AUTO) 5 % (22-44); MEAN CORPUSCULAR HEMOGLOBIN 30.8 pg (27.5-34.5); MEAN CORPUSCULAR HGB CONC 33.2 g/dL (33.2-36.2); MEAN PLATELET VOLUME 10.3 fL (7.4-10.4); MONOCYTES % (AUTO) 6 % (2-9); NEUTROPHILS % (AUTO) 89 % (42-75); PLATELET COUNT 204 x10^3/uL (130-400); RED BLOOD COUNT 4.49 x10^6/uL (4.38-5.82); RED CELL DISTRIBUTION WIDTH 14.7 % (9.4-14.8)
[2020-03-04] MEDS: ENOXAPARIN 40 MG/0.4 ML SQ SCH ×2 (05:00→17:29)
[2020-03-04 06:00] LABS: MD SCAN
[2020-03-04] MEDS: ALBUTEROL/IPRATROPIUM 2.5MG/0.5MG, 3 ML INLINE SCH (06:55)
[2020-03-04] MEDS: FUROSEMIDE 40 MG/4 ML IV SCH (08:44)
[2020-03-04] MEDS: BENZONATATE 100 MG CAPSULE PO SCH ×3 (08:44→21:00)
[2020-03-04] MEDS: THIAMINE 100MG TABLET PO SCH (08:44)
[2020-03-04] MEDS: LINEZOLID 600 MG TABLET PO SCH (08:44)
[2020-03-04] MEDS: CHOLECALCIFEROL 5,000u TAB PO SCH (08:44)
[2020-03-04] MEDS: ZINC SULFATE 220 MG CAPSULE PO SCH (08:44)
[2020-03-04] MEDS: ASCORBIC ACID 500 MG TABLET PO SCH (08:45)
[2020-03-04] MEDS: LORATADINE 10 MG TABLET PO SCH (08:45)
[2020-03-04] MEDS: FLUTICASONE NASAL SPRAY 16GM NAS SCH (08:46)
[2020-03-04] MEDS: LACTULOSE 20 GM/30 ML UDC PO SCH ×2 (08:46→19:04)
[2020-03-04] MEDS: INSULIN GLARGINE 100 UNITS/ML, PEN SQ-INSULIN SCH ×2 (08:47→19:40)
[2020-03-04] MEDS: ACETAMINOPHEN 325 MG TABLET PO PRN ×2 (09:00→17:28)
[2020-03-04] MEDS: PIPERACILLIN/TAZO/PMX 2.25GM 50 ML IVPB SCH ×3 (10:51→23:35)
[2020-03-04] MEDS: FENTANYL PF 2,500 MCG in SODIUM CHLORIDE 0.9% 200 ML IV PRN (12:06)
[2020-03-04] MEDS: FAMOTIDINE 20 MG/2 ML IVPush SCH (21:34)
[2020-03-04] MEDS: ATORVASTATIN 40 MG TABLET PO SCH (21:34)
[2020-03-05] MEDS: GUAIFENESIN/DM 200-20MG, 10ML UDC PO SCH ×2 (01:41→04:59)
[2020-03-05] MEDS: INSULIN LISPRO 100 UNITS/ML, PEN SQ-INSULIN SCH ×2 (03:20→08:49)
[2020-03-05 04:28] LABS: BASOPHILS % (AUTO) 0 % (0-1); EOSINOPHILS % (AUTO) 1 % (1-7); LYMPHOCYTES % (AUTO) 5 % (22-44); MEAN CORPUSCULAR HEMOGLOBIN 30.7 pg (27.5-34.5); MEAN PLATELET VOLUME 10.1 fL (7.4-10.4); MONOCYTES % (AUTO) 6 % (2-9); NEUTROPHILS % (AUTO) 88 % (42-75); PLATELET COUNT 205 x10^3/uL (130-400); RED BLOOD COUNT 4.56 x10^6/uL (4.38-5.82); RED CELL DISTRIBUTION WIDTH 14.6 % (9.4-14.8)
[2020-03-05 04:32] LABS: CHLORIDE 103 mmol/L (98-107)
[2020-03-05 04:42] LABS: ANION GAP 3 mmol/L (5-15); BILIRUBIN,TOTAL 0.7 mg/dL (0.2-1.0); CALCIUM 9.6 mg/dL (8.5-10.1); CREATININE 2.18 mg/dL (0.7-1.3)
[2020-03-05] MEDS: ENOXAPARIN 40 MG/0.4 ML SQ SCH (05:00)
[2020-03-05] MEDS: MIDAZOLAM HCL 50 MG in SODIUM CHLORIDE 0.9% 40 ML IV PRN (05:00)
[2020-03-05] MEDS: FENTANYL PF 2,500 MCG in SODIUM CHLORIDE 0.9% 200 ML IV PRN (06:16)
[2020-03-05 06:29] LABS: MD SCAN
[2020-03-05] MEDS: BENZONATATE 100 MG CAPSULE PO SCH (08:41)
[2020-03-05] MEDS: FLUTICASONE NASAL SPRAY 16GM NAS SCH (08:42)
[2020-03-05] MEDS: LORATADINE 10 MG TABLET PO SCH (08:48)
[2020-03-05] MEDS: PIPERACILLIN/TAZO/PMX 2.25GM 50 ML IVPB SCH (08:48)
[2020-03-05] MEDS: FUROSEMIDE 40 MG/4 ML IV SCH (08:48)
[2020-03-05] MEDS: LACTULOSE 20 GM/30 ML UDC PO SCH (08:49)
[2020-03-05] MEDS: INSULIN GLARGINE 100 UNITS/ML, PEN SQ-INSULIN SCH (08:50)
[2020-03-05] MEDS ORDERED: THIAMINE 100MG TABLET PO SCH (09:00)
[2020-03-05] MEDS ORDERED: MORPHINE SULFATE 4 MG/ML, 1ML IV ONE (09:30)
[2020-03-05] MEDS ORDERED: LORazepam 2 MG/ML, 1ML IV ONE (09:30)
[2020-03-05] MEDS ORDERED: LORazepam 2 MG/ML, 1ML IVPush PRN (09:30)
[2020-03-05] MEDS ORDERED: MORPHINE SULFATE 4 MG/ML, 1ML IVPush PRN (09:30)
[2020-03-05 09:36] LABS: FIBRINOGEN 576 mg/dL (200-340); INTERNATIONAL NORMALIZED RATIO 1.03 (0.93-1.1); PARTIAL THROMBOPLASTIN TIME 28 Seconds (25-31); PROTHROMBIN TIME 10.9 Seconds (9.6-11.5)
[2020-03-05 09:37] LABS: D-DIMER > 35.20 ug/mlFEU (0.00-0.52)
== END 2020-03-05 11:40 | disposition expired | DRG 870 ==
LOC: ED 22:32 → EDIP 22:36 → 3N 02-22 00:50 → ICU 02-23 14:05
PROVIDERS: ADMIT Internal Medicine; ATTEND Hospitalist
PROC: 5A09357 Assistance with Respiratory Ventilation, Less than 24 Consecutive Hours, Continuous Positive Airway Pressure (ICD-10-PCS; 2020-02-23)
PROC: XW033E5 Introduction of Remdesivir Anti-infective into Peripheral Vein, Percutaneous Approach, New Technology Group 5 (ICD-10-PCS; 2020-02-23)
PROC: 5A09357 Assistance with Respiratory Ventilation, Less than 24 Consecutive Hours, Continuous Positive Airway Pressure (ICD-10-PCS; 2020-02-24)
PROC: 5A09357 Assistance with Respiratory Ventilation, Less than 24 Consecutive Hours, Continuous Positive Airway Pressure (ICD-10-PCS; 2020-02-25)
PROC: 5A09357 Assistance with Respiratory Ventilation, Less than 24 Consecutive Hours, Continuous Positive Airway Pressure (ICD-10-PCS; 2020-02-26)
PROC: 5A1955Z Respiratory Ventilation, Greater than 96 Consecutive Hours (ICD-10-PCS; 2020-02-27)
PROC: 0BH17EZ Insertion of Endotracheal Airway into Trachea, Via Natural or Artificial Opening (ICD-10-PCS; 2020-02-27)
PROC: 5A09357 Assistance with Respiratory Ventilation, Less than 24 Consecutive Hours, Continuous Positive Airway Pressure (ICD-10-PCS; 2020-02-27)
PROC: 0T9B30Z Drainage of Bladder with Drainage Device, Percutaneous Approach (ICD-10-PCS; principal; 2020-03-01)
DX: A41.89 Other specified sepsis (principal); G93.41 Metabolic encephalopathy; J12.89 Other viral pneumonia; J80 Acute respiratory distress syndrome; N17.0 Acute kidney failure with tubular necrosis; U07.1 COVID-19; E46 Unspecified protein-calorie malnutrition; E87.1 Hypo-osmolality and hyponatremia; J81.1 Chronic pulmonary edema; Z68.41 Body mass index [BMI] 40.0-44.9, adult; Z99.11 Dependence on respirator [ventilator] status; E11.22 Type 2 diabetes mellitus with diabetic chronic kidney disease; E11.65 Type 2 diabetes mellitus with hyperglycemia; E66.01 Morbid (severe) obesity due to excess calories; E78.1 Pure hyperglyceridemia; E78.5 Hyperlipidemia, unspecified; E86.0 Dehydration; I20.9 Angina pectoris, unspecified; I12.9 Hypertensive chronic kidney disease with stage 1 through stage 4 chronic kidney disease, or unspecified chronic kidney disease; N18.30 Chronic kidney disease, stage 3 unspecified; Z51.5 Encounter for palliative care; Z66 Do not resuscitate; I95.9 Hypotension, unspecified; F41.9 Anxiety disorder, unspecified; R74.01 Elevation of levels of liver transaminase levels; Z79.899 Other long term (current) drug therapy; Z79.891 Long term (current) use of opiate analgesic; Z79.01 Long term (current) use of anticoagulants
CPT/HCPCS: 36415; 36600; 71045; 71275; 80048; 80053; 80061; 81001; 82247; 82803; 82962; 83036; 83615; 83735; 83880; 84100; 84443; 84478; 84484; 85025; 85379; 85384; 85610; 85730; 87070; 87081; 87086; 87205; 93005; 94003; 94640; 94660; 99285; G0378; J0696; J1100; J1650; J1940; J2250; J2543; J2704; J3010; J7030; J7060; Q9967; J1815; J2060; J2270; J7050